=== PATIENT | female | born 1980 | race Caucasian/White ===

== ENCOUNTER 2017-06-02 16:44 | Emergency (ER) | payer OTHER ==
[2017-06-02 16:57] VITALS: BP 152/101
[2017-06-02] MEDS ORDERED: Sodium Chloride 0.9% 10 ML Syringe FLUSH PRN (17:23)
[2017-06-02] MEDS ORDERED: Aspirin 81 MG Tab.Chew PO ONE (17:23)
--- NOTE | 2017-06-02 18:56 | EDM.PDOC ---
ED HPI GENERAL MEDICAL PROBLEM - General Chief Complaint: Chest Pain Stated Complaint: CHEST PAIN Time Seen by Provider: 06/02/17 16:59 Source of Information: Reports: Patient History Limitations: Reports: No Limitations - History of Present Illness INITIAL COMMENTS - FREE TEXT/NARRATIVE: The patient presents with left sided chest pain. This started this morning. The pain is sharp. It is made worse by taking a deep breath. She has a mild cough but no fever or chills. She has no shortness of breath. She has no edema or pain in her legs. She has no history of DVT or PE. She went and worked out today and that made it worse and she was a little short of breath. She does smoke. She has history of HTN. She has no trouble with cholesterol. Onset: Gradual Duration: Hour(s): (This morning) Location: Reports: Chest Quality: Reports: Sharp Severity: Moderate Improves with: Reports: None Worsens with: Reports: None Context: Reports: Exercise Associated Symptoms: Reports: Chest Pain, Shortness of Breath. Denies: Fever/ Chills, Nausea/Vomiting Chest Pain Score (Numeric/FACES): 6 - Related Data Allergies Allergy/AdvReac Type Severity Reaction Status Date / Time amoxicillin [Amoxicillin] Allergy Hives Verified 06/02/17 16:51 Home Meds: Home Meds Blood Pressure Medication. 1 tab PO DAILY 11/15/14 [History] traMADol [Ultram] 50 mg PO Q6H PRN 06/02/17 [History] Past Medical History - Past Health History Medical/Surgical History: Denies Medical/Surgical History Cardiovascular History: Reports: Hypertension Social & Family History - Tobacco Use Smoking Status *Q: Current Every Day Smoker Years of Tobacco use: 20 Packs/Tins Daily: 0.3 - Alcohol Use Days Per Week of Alcohol Use: 7 Number of Drinks Per Day: 12 Total Drinks Per Week: 84 - Recreational Drug Use Recreational Drug Use: No ED ROS GENERAL - Review of Systems Review Of Systems: See Below Constitutional: Reports: No Symptoms HEENT: Reports: No Symptoms Respiratory: Reports: No Symptoms Cardiovascular: Reports: Chest Pain Endocrine: Reports: No Symptoms GI/Abdominal: Reports: No Symptoms : Reports: No Symptoms Musculoskeletal: Reports: No Symptoms Skin: Reports: No Symptoms Neurological: Reports: No Symptoms ED EXAM, GENERAL - Physical Exam Exam: See Below Exam Limited By: No Limitations General Appearance: Alert, No Apparent Distress Ears: Normal External Exam Nose: Normal Inspection Head: Atraumatic, Normocephalic Neck: Normal Inspection Respiratory/Chest: No Respiratory Distress, Lungs Clear, Normal Breath Sounds Cardiovascular: Regular Rate, Rhythm, No Edema, No Murmur GI/Abdominal: Soft, Non-Tender, No Organomegaly, No Mass Back Exam: Normal Inspection Extremities: Normal Inspection Neurological: Alert, Oriented, No Motor/Sensory Deficits EKG INTERPRETATION EKG Date: 06/02/17 Time: 16:53 Rhythm: NSR Rate (Beats/Min): 66 [place]: Normal P-Wave: Present QRS: Normal ST-T: Normal QT: Normal Course - Vital Signs Last Recorded V/S: Last Vital Signs Temp 97.7 F 06/02/17 16:52 Pulse 61 06/02/17 16:52 Resp 16 06/02/17 16:52 BP 152/101 H 06/02/17 16:52 Pulse Ox 99 06/02/17 16:52 - Orders/Labs/Meds Orders: Active Orders 24 hr Category Date Time Status Cardiac Monitoring [RC] . DIRECTED Care 06/02/17 17:23 Active EKG Documentation Completion [RC] STAT Care 06/02/17 16:50 Active Peripheral IV Care [RC] . DIRECTED Care 06/02/17 17:23 Inactive Chest 1V Frontal [CR] Stat Exams 06/02/17 17:23 Taken Labs: Laboratory Tests 06/02/17 06/02/17 06/02/17 Range/Units 17:40 17:40 17:40 WBC 6.21 (3.98-10.04) K/mm3 RBC 4.07 (3.98-5.22) M/mm3 Hgb 13.6 (11.2-15.7) gm/L Hct 38.7 (34.1-44.9) % MCV 95.1 H (79.4-94.8) fl MCH 33.4 H (25.6-32.2) pg MCHC 35.1 (32.2-35.5) g/dl RDW Std Deviation 40.9 (36.4-46.3) fL Plt Count 235 (182-369) K/mm3 MPV 9.5 (9.4-12.3) fl Neut % (Auto) 54.9 (34.0-71.1) % Lymph % (Auto) 30.0 (19.3-51.7) % Boundary % (Auto) 12.9 H (4.7-12.5) % Eos % (Auto) 1.6 (0.7-5.8) Baso % (Auto) 0.6 (0.1-1.2) % Neut # (Auto) 3.41 (1.56-6.13) K/mm3 Lymph # (Auto) 1.86 (1.18-3.74) K/mm3 Boundary # (Auto) 0.80 H (0.24-0.36) K/mm3 Eos # (Auto) 0.10 (0.04-0.36) K/mm3 Baso # (Auto) 0.04 (0.01-0.08) K/mm3 D-Dimer, Quantitative 0.28 (0.19-0.59) mg/L Sodium 140 (136-145) mEq/L Potassium 2.8 L (3.5-5.1) mEq/L Chloride 101 (98-107) mEq/L Carbon Dioxide 29 (21-32) mEq/L Anion Gap 12.8 (5-15) BUN 18 (7-18) mg/dL Creatinine 0.9 (0.55-1.02) mg/dL Est Cr Clr Drug Dosing TNP Estimated GFR (MDRD) > 60 (>60) mL/min BUN/Creatinine Ratio 20.0 H (14-18) Glucose 104 (74-106) mg/dL Calcium 10.1 (8.5-10.1) mg/dL Total Bilirubin 0.3 (0.2-1.0) mg/dL AST 35 (15-37) U/L ALT 39 (14-59) U/L Alkaline Phosphatase 37 L (46-116) U/L Troponin I < 0.017 (0.00-0.056) ng/mL Total Protein 7.3 (6.4-8.2) g/dl Albumin 4.1 (3.4-5.0) g/dl Globulin 3.2 gm/dL Albumin/Globulin Ratio 1.3 (1-2) Meds: Medications Discontinued Medications Generic Name Dose Route Start Last Admin Trade Name Freq PRN Reason Stop Dose Admin Aspirin 324 mg 06/02/17 17:23 06/02/17 17:37 Aspirin PO 06/02/17 17:24 324 mg ONETIME ONE Administration Sodium Chloride 10 ml 06/02/17 17:23 Saline Flush FLUSH ASDIRECTED PRN Keep Vein Open - Re-Assessments/Exams Free Text/Narrative Re-Assessment/Exam: 06/02/17 18:54 I ordered an aspirin, EKG, labs, and CXR. Her EKG shows a NSR with no acute changes. Her CBC and CMP look good. Her troponin is negative. Her D-dimer is negative. Her CXR shows scoliosis but nothing acute. 06/02/17 18:56 She has pleurisy. She said the aspirin made it feel better. Departure - Departure Time of Disposition: 19:00 Disposition: Home, Self-Care 01 Condition: Good Clinical Impression: Pleurisy Referrals: Ava Hyman DO [Primary Care Provider] - 1 Week Forms: ED Department Discharge Additional Instructions: Take aspirin, motrin or aleve for the pain. Limit fast running for a few days. Please return if you are worse. Follow up with your doctor in 1 week. - My Orders Last 24 Hours: My Active Orders 06/02/17 16:50 EKG Documentation Completion [RC] STAT 06/02/17 17:23 Cardiac Monitoring [RC] . DIRECTED Peripheral IV Care [RC] . DIRECTED Chest 1V Frontal [CR] Stat - Assessment/Plan Last 24 Hours: My Active Orders 06/02/17 16:50 EKG Documentation Completion [RC] STAT 06/02/17 17:23 Cardiac Monitoring [RC] . DIRECTED Peripheral IV Care [RC] . DIRECTED Chest 1V Frontal [CR] Stat
--- NOTE | 2017-06-03 07:00 | CR ---
Chest: Portable view of the chest was obtained. Comparison: Previous chest x-ray of 05/07/14. Heart size and mediastinum are normal. Scoliosis is present within the spine. Lungs are clear with no infiltrates. Impression: 1. Nothing acute is appreciated on portable chest x-ray. Diagnostic code #2
== END 2017-06-02 19:15 | disposition home or self-care (01) ==
LOC: JD.ED 16:44
DX: R09.1 Pleurisy (principal); I10 Essential (primary) hypertension; F17.210 Nicotine dependence, cigarettes, uncomplicated; Z88.1 Allergy status to other antibiotic agents
CPT/HCPCS: 36415; 71010; 80053; 84484; 85025; 85379; 93005; 99285; A9270; 99284

== ENCOUNTER 2018-07-18 10:42 | Emergency (ER) | payer OTHER ==
[2018-07-18] MEDS ORDERED: Oxymetazoline 0.05% Nasal Spray 15 ML Bottle NAS ONE (11:23)
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
[2018-07-18] MEDS ORDERED: Potassium Chloride 20 MEQ Tab.ER PO ONE (12:23)
[2018-07-18] MEDS ORDERED: Ketorolac 60 MG/2 ML SDV IM ONE (12:50)
[2018-07-18] MEDS ORDERED: Ketorolac 60 MG/2 ML SDV ONE (12:52)
[2018-07-18 13:02] VITALS: BP 134/92
--- NOTE | 2018-07-19 10:12 | CR ---
Chest: Two views of the chest were obtained. Comparison: Prior chest x-ray of 06/02/17. Heart size and mediastinum are normal. Lungs are clear. Scoliosis is noted within the spine. Impression: 1. Nothing acute is seen on two-view chest x-ray. Diagnostic code #2
== END 2018-07-18 13:10 | disposition home or self-care (01) ==
LOC: JD.ED 10:42
DX: J30.2 Other seasonal allergic rhinitis (principal); J06.9 Acute upper respiratory infection, unspecified; I10 Essential (primary) hypertension; Z88.1 Allergy status to other antibiotic agents; Z88.8 Allergy status to other drugs, medicaments and biological substances; F17.210 Nicotine dependence, cigarettes, uncomplicated
CPT/HCPCS: 36415; 71046; 80053; 80306; 81001; 81025; 82375; 84443; 85007; 85027; 86140; 93005; 96372; 99284; A9270; G0480; J1885

== ENCOUNTER 2020-04-16 14:48 | Emergency (ER) | payer OTHER ==
[2020-04-16 14:56] VITALS: BP 162/104; PULSE 77
[2020-04-16] MEDS ORDERED: Sodium Chloride 0.9% 10 ML Syringe FLUSH PRN (15:02)
--- NOTE | 2020-04-16 15:25 | EDM.PDOC ---
ED HPI GENERAL MEDICAL PROBLEM - General Chief Complaint: Chest Pain Stated Complaint: CHEST DISCOMFORT/BP ISSUES Time Seen by Provider: 04/16/20 15:00 Source of Information: Reports: Patient, RN Notes Reviewed History Limitations: Reports: No Limitations - History of Present Illness INITIAL COMMENTS - FREE TEXT/NARRATIVE: Patient is a 39-year-old female who presents to the ED for couple different issues. Patient notes that for the last 2 weeks, she is just feeling generally unwell. She is complaining of left-sided chest pressure, headache, and increased blood pressure readings at home. She was evaluated in the clinic by Maral Black and Zack Jones, and was found to have blood pressures in the 160s systolically and started on metoprolol 50 mg daily and losartan 50 mg daily along with chlorthalidone 25 mg every day. Patient states she was also sent home with a Holter monitor, and noted that she was found to have 478 PVCs, and she has been referred to cardiology and her appointment is May 04, she cannot remember the database operator but he is in [place] at the [facility]. Patient states she is having some mild dizziness associated with this, sinus pressure, but she denies any fever, cough/shortness of breath, or any fatigue. Blood pressures at home have been 164/98, 166/114, and she was found to be 162/104 at time of triage. Patient feels like her head is just in a vice, she did a little bit of nausea and vomiting this morning, but no blurred vision or double vision. Patient states she did have a thyroid nodule, that she received radiation pill for 4 months ago, and her last TSH was within normal limits. This was drawn April 03, 2020. Patient notes she is making multiple life changes, she is trying to stop drinking, so she is cutting back steadily, she only had 2 cigarettes yesterday, she did try to smoke some marijuana today, took 3 hits off of some medical marijuana to see if this would help and it did not. She denies any cocaine or methamphetamine use. Patient also notes she has increased anxiety in her life, she is a lot of things going on, regarding her daughter and otherwise that she was concerned it just could be anxiety as well. Patient has no medications at home to regulate his anxiety. Headache Pain Score (Numeric/FACES): 7 - Related Data Allergies Allergy/AdvReac Type Severity Reaction Status Date / Time amoxicillin [Amoxicillin] Allergy Hives Verified 04/16/20 14:56 valdecoxib [From Bextra] Allergy Rash Verified 04/16/20 14:56 Home Meds: Home Meds traMADol [Ultram] 50 mg PO Q6H PRN 06/02/17 [History] Chlorthalidone 25 mg PO DAILY 07/18/18 [History] Fish Oil/Mora-3 Fatty Acids [Fish Oil 1,000 MG] 1 each PO DAILY 04/16/20 [History] LORazepam [Ativan] 1 mg PO TID PRN #21 tab 04/16/20 [Rx] Losartan [Cozaar] 50 mg PO DAILY 04/16/20 [History] Metoprolol Succinate [Toprol XL 50mg] 50 mg PO DAILY 04/16/20 [History] Multivitamins [Tab-A-Keila] 1 each PO DAILY 04/16/20 [History] Past Medical History HEENT History: Reports: Impaired Vision Cardiovascular History: Reports: Hypertension TWISTER IN History: Reports: Psychiatric History: Reports: Addiction, Anxiety Endocrine/Metabolic History: Reports: Hyperthyroidism (had radiation pill for thyroid nodule 11/2019) Oncologic (Cancer) History: Reports: Cervix Dermatologic History: Reports: Eczema - Infectious Disease History Infectious Disease History: Reports: Chicken Pox - Past Surgical History Female Surgical History: Reports: Tubal Ligation, Other (See Below) Other Female Surgeries/Procedures: Conization of Cervix Social & Family History - Family History Family Medical History: Noncontributory - Tobacco Use Smoking Status *Q: Current Every Day Smoker Years of Tobacco use: 15 Packs/Tins Daily: 0.5 - Caffeine Use Caffeine Use: Reports: Coffee - Recreational Drug Use Recreational Drug Use: Yes Recreational Drug Type: Reports: Marijuana/Hashish ED ROS GENERAL - Review of Systems Review Of Systems: See Below Constitutional: Denies: Fever, Chills Respiratory: Denies: Shortness of Breath, Cough Cardiovascular: Reports: Chest Pain (left sided chest pressure), Blood Pressure Problem (elevated BPs at home), Lightheadedness GI/Abdominal: Reports: Nausea, Vomiting. Denies: Abdominal Pain, Constipation, Diarrhea Neurological: Reports: Dizziness, Headache (feels like her head is in a vise) Psychiatric: Reports: Anxiety (history of anxiety; has no medications to regulate anxiety) ED EXAM, GENERAL - Physical Exam Exam: See Below Exam Limited By: No Limitations General Appearance: Alert, WD/WN, No Apparent Distress, Anxious Eye Exam: Bilateral Eye: EOMI, Normal Inspection, PERRL Nose: Normal Inspection Throat/Mouth: Normal Inspection, Normal Lips, Normal Teeth, Normal Gums, Normal Oropharynx, Normal Voice, No Airway Compromise Head: Atraumatic, Normocephalic Neck: Normal Inspection Respiratory/Chest: No Respiratory Distress, Lungs Clear, Normal Breath Sounds, No Accessory Muscle Use, Chest Non-Tender Cardiovascular: Normal Peripheral Pulses, Regular Rate, Rhythm, No Murmur Peripheral Pulses: 3+: Radial (L), Radial (R), Dorsalis Pedis (L), Dorsalis Pedis (R) GI/Abdominal: Normal Bowel Sounds, Soft, Non-Tender, No Distention, No Mass Extremities: Normal Inspection, Normal Capillary Refill Neurological: Alert, Oriented, Normal Cognition, No Motor/Sensory Deficits Psychiatric: Normal Affect, Normal Mood, Anxious (pt tells me that she has a lot of things happening at home; that is increasing her anxiety, and she does get somewhat tearful at exam talking about them) Skin Exam: Warm, Dry, Intact, Normal Color, No Rash EKG INTERPRETATION EKG Date: 04/16/20 Time: 15:04 Rhythm: NSR Rate (Beats/Min): 62 [place]: Normal P-Wave: Present QRS: Normal ST-T: Normal QT: Normal Comparison: NA - No Prior EKG EKG Interpretation Comments: No obvious ischemia or acute ST changes noted, reviewed by myself and Dr. Garza. Course - Vital Signs Last Recorded V/S: Last Vital Signs Temp 97.6 F 04/16/20 14:53 Pulse 77 04/16/20 14:53 Resp 16 04/16/20 14:53 BP 162/104 H 04/16/20 14:53 Pulse Ox 98 04/16/20 14:53 - Orders/Labs/Meds Orders: Active Orders 24 hr Category Date Time Status EKG Documentation Completion [RC] STAT Care 04/16/20 15:02 Ordered Peripheral IV Care [RC] . DIRECTED Care 04/16/20 15:03 Ordered Sodium Chloride 0.9% [Saline Flush] Med 04/16/20 15:02 Ordered 10 ml FLUSH ASDIRECTED PRN Peripheral IV Insertion Adult [OM.PC] Stat Oth 04/16/20 15:02 Ordered Medication Orders Sodium Chloride (Saline Flush) 10 ml FLUSH ASDIRECTED PRN PRN Reason: Keep Vein Open Last Admin: 04/16/20 15:47 Dose: 10 ml Documented by: RENUKA Labs: Laboratory Tests 04/16/20 04/16/20 04/16/20 Range/Units 15:20 15:20 15:20 WBC 6.68 (3.98-10.04) K/mm3 RBC 4.31 (3.98-5.22) M/mm3 Hgb 14.2 (11.2-15.7) gm/dl Hct 42.1 (34.1-44.9) % MCV 97.7 H D (79.4-94.8) fl MCH 32.9 H (25.6-32.2) pg MCHC 33.7 (32.2-35.5) g/dl RDW Std Deviation 42.4 (36.4-46.3) fL Plt Count 256 (182-369) K/mm3 MPV 9.2 L (9.4-12.3) fl Neutrophils % (Manual) 67 H (40-60) % Band Neutrophils % 0 (0-10) % Lymphocytes % (Manual) 23 (20-40) % Atypical Lymphs % 0 % Monocytes % (Manual) 10 (2-10) % Eosinophils % (Manual) 0 L (0.7-5.8) % Basophils % (Manual) 0 L (0.1-1.2) Toxic Granulation Few Platelet Estimate Adequate Plt Morphology Comment Normal RBC Morph Comment Normal PT 10.3 (9.7-12.0) SECONDS INR 0.94 APTT 28 (22-31) SECONDS Sodium 138 (136-145) mEq/L Potassium 4.0 (3.5-5.1) mEq/L Chloride 104 (98-107) mEq/L Carbon Dioxide 23 (21-32) mEq/L Anion Gap 15.0 (5-15) BUN 9 (7-18) mg/dL Creatinine 0.8 (0.55-1.02) mg/dL Est Cr Clr Drug Dosing 91.81 mL/min Estimated GFR (MDRD) > 60 (>60) mL/min BUN/Creatinine Ratio 11.3 L (14-18) Glucose 117 H (74-106) mg/dL Calcium 9.1 (8.5-10.1) mg/dL Magnesium 1.6 L (1.8-2.4) mg/dl Total Bilirubin 0.5 (0.2-1.0) mg/dL AST 14 L (15-37) U/L ALT 6 L (14-59) U/L Alkaline Phosphatase 45 L (46-116) U/L Troponin I < 0.017 (0.00-0.056) ng/mL Total Protein 7.3 (6.4-8.2) g/dl Albumin 4.0 (3.4-5.0) g/dl Globulin 3.3 gm/dL Albumin/Globulin Ratio 1.2 (1-2) TSH 3rd Generation 1.960 (0.358-3.74) uIU/mL Meds: Medications Generic Name Dose Route Start Last Admin Trade Name Freq PRN Reason Stop Dose Admin Sodium Chloride 10 ml 04/16/20 15:02 04/16/20 15:47 Saline Flush FLUSH 10 ml ASDIRECTED PRN Administration Keep Vein Open Discontinued Medications Generic Name Dose Route Start Last Admin Trade Name Freq PRN Reason Stop Dose Admin Diphenhydramine HCl 25 mg 04/16/20 15:31 04/16/20 15:53 Benadryl IVPUSH 04/16/20 15:32 25 mg ONETIME ONE Administration Sodium Chloride 1,000 mls @ 999 mls/hr 04/16/20 15:31 04/16/20 15:46 Normal Saline IV 04/16/20 16:31 999 mls/hr ONETIME ONE Administration Ketorolac Tromethamine 30 mg 04/16/20 15:31 04/16/20 15:47 Toradol IVPUSH 04/16/20 15:32 30 mg ONETIME ONE Administration Metoclopramide HCl 10 mg 04/16/20 15:31 04/16/20 15:49 Reglan IVPUSH 04/16/20 15:32 10 mg ONETIME ONE Administration - Re-Assessments/Exams Free Text/Narrative Re-Assessment/Exam: 04/16/20 15:30 Patient presents to the ED for the evaluation of her left-sided chest pressure, headache, and suspected anxiety. She has been started on blood pressure medication for the blood pressure toilet will take some time for that to get under control nonetheless we will get EKG the basic lab work to rule out any cardiac etiology of the left-sided chest pain. She will get a combination of Toradol, Benadryl, and Reglan for her headache along with some IV fluids. If her work-up is unremarkable at today's visit, we will send her home with a prescription for Ativan for increased anxiety at home. 04/16/20 16:19 Patient's laboratory evaluation has returned, CBC is unremarkable, metabolic panel is essentially unremarkable. No worrisome abnormalities identified. Magnesium slightly low at 1.6, she will be directed to supplement with dietary changes over the next few days. Patient will be reassessed at bedside to see how she is feeling after medications have been given for her headache. 04/16/20 16:46 Patient is feeling better after the medications and fluids. We will provided with a prescription for Ativan should be discharged home after her fluids are done. Of note the patient's blood pressure readings are much better, in the 120s systolically while the patient is resting. Departure - Departure Time of Disposition: 16:46 Disposition: Home, Self-Care 01 Condition: Good Clinical Impression: Anxiety as acute reaction to exceptional stress, Elevated blood pressure reading in office with diagnosis of hypertension, Hypomagnesemia Prescriptions: LORazepam [Ativan] 1 mg PO TID PRN #21 tab PRN Reason: Anxiety Instructions: Managing Your Hypertension, Hypomagnesemia Referrals: Maral Black MD [Primary Care Provider] - Forms: ED Department Discharge Additional Instructions: You were today for your chest pressure/anxiety/blood pressure concerns. Work-up in the ER today included EKG, chest x-ray, lab work, IV meds and fluids. Laboratory evaluation demonstrated only a mildly low magnesium level, you can supplement this with dietary changes, please increase your intake of dark green leafy vegetables, and other foods that are high in magnesium. You are not suffering from a heart attack at today's visit, symptoms are most likely due to anxiety due to exceptional stress at home and also regarding your health. You have been given a prescription for Ativan, please take 1 tab 3 times a day as needed for further anxiety relief. Medication has been sent to clinic pharmacy you will need to go there tomorrow to pick this up and take as prescribed. Recommend you keep an eye on your blood pressures, keep a blood pressure journal and discuss them with your primary care provider, as blood pressure medications can take a little time to start regulating your blood pressure the way they are intended to. Please return to the ER at any time if your symptoms should change or worsen. Sepsis Event Note (ED) - Evaluation Sepsis Screening Result: No Definite Risk - Focused Exam Vital Signs: Vital Signs Temp Pulse Resp BP Pulse Ox 04/16/20 14:53 97.6 F 77 16 162/104 H 98 - My Orders Last 24 Hours: My Active Orders 04/16/20 15:02 EKG Documentation Completion [RC] STAT Sodium Chloride 0.9% [Saline Flush] 10 ml FLUSH ASDIRECTED PRN Peripheral IV Insertion Adult [OM.PC] Stat 04/16/20 15:03 Peripheral IV Care [RC] . DIRECTED - Assessment/Plan Last 24 Hours: My Active Orders 04/16/20 15:02 EKG Documentation Completion [RC] STAT Sodium Chloride 0.9% [Saline Flush] 10 ml FLUSH ASDIRECTED PRN Peripheral IV Insertion Adult [OM.PC] Stat 04/16/20 15:03 Peripheral IV Care [RC] . DIRECTED
[2020-04-16] MEDS ORDERED: Sodium Chloride 0.9% 1,000 ML IV ONE (15:31)
[2020-04-16] MEDS ORDERED: diphenhydrAMINE 50 MG/ML SDV IVPUSH ONE (15:31)
[2020-04-16] MEDS ORDERED: Metoclopramide 10 MG/2 ML SDV IVPUSH ONE (15:31)
[2020-04-16] MEDS ORDERED: Ketorolac 30 MG/ML SDV IVPUSH ONE (15:31)
--- NOTE | 2020-04-16 16:06 | CR ---
Chest: 2 views of the chest were obtained. Comparison: Prior chest x-ray of 07/18/18. Heart size and mediastinum are normal. Lungs are clear with no acute parenchymal change. Scoliosis is noted within the spine. Impression: 1. Nothing acute is appreciated on 2 chest x-ray. Diagnostic code #2 Study was dictated in MDT
[2020-04-16] MEDS ORDERED: LORazepam 1 MG Tab PO ONE (16:51)
== END 2020-04-16 17:10 | disposition home or self-care (01) ==
LOC: JD.ED 14:48
DX: F41.8 Other specified anxiety disorders (principal); F43.0 Acute stress reaction; I10 Essential (primary) hypertension; E83.42 Hypomagnesemia; F17.210 Nicotine dependence, cigarettes, uncomplicated; Z88.1 Allergy status to other antibiotic agents; Z79.899 Other long term (current) drug therapy
CPT/HCPCS: 36415; 71046; 80053; 83735; 84443; 84484; 85007; 85027; 85610; 85730; 93005; 96361; 96374; 96375; 99285; A9270; J1200; J1885; J2765; J7030; 93010; 99284

== ENCOUNTER 2020-09-27 19:59 | Emergency (ER) | payer OTHER ==
[2020-09-27 20:33] VITALS: PULSE 84
--- NOTE | 2020-09-27 21:53 | EDM.PDOC ---
ED HPI GENERAL MEDICAL PROBLEM - General Chief Complaint: Cardiovascular Problem Stated Complaint: HIGH BP/HEADACHES Time Seen by Provider: 09/27/20 21:07 Source of Information: Reports: Patient, RN Notes Reviewed History Limitations: Reports: No Limitations - History of Present Illness INITIAL COMMENTS - FREE TEXT/NARRATIVE: Patient is a 40-year-old female presenting to the emergency department with complaints of chronic headache over the last few days as well as elevated blood pressures and intermittent chest pains. Patient has a history of thyroid nodules which were removed and required radiation. She has had normal TSH and free T4 until her last visit 2 days ago with her primary care provider. She was found to have elevated TSH at that time. She was also diagnosed with a sinus infection at that time for which she is currently taking doxycycline. In addition, patient is detoxing herself from chronic alcohol use. States she used to drink 6 drinks per day and that she has been trying to wean herself off since . She currently has been having 1 drink per day. She describes having frequent headaches as well as occasional dizziness. Blood pressures have been chronically elevated at home as well as in the clinic. Blood pressure reading in the clinic today is always 164/106. She also has a history of palpitations. She did have a 48-hour Holter monitor completed and saw administrator pesticide, Dr. Arias. Holter monitor report revealed PVCs and PACs but no runs of SVT, A. fib, or ventricular tachycardia. Dr. Arias started her on carvedilol for her palpitations. She recently stopped taking this medication as she thought this could be causing her headaches. Today she did have some increase palpitations, therefore she took one of her carvedilol 12.5 mg around 2:00 this afternoon. Since she took the carvedilol, she only took half of her losartan at 7 PM this evening. Initial blood pressure at triage was 198/126, however after rest she came down to 164/110. She complains of some mild chest pressure that comes and goes and occasional sharp stabbing pains in her chest. She does have a prescription for Ativan that was for anxiety, however she has not been using this during her alcohol withdrawal as she did not know if it was safe with her other medications. Patient states she is scheduled to have an MRI to evaluate her pituitary gland for possible pituitary adenoma. Headache Pain Score (Numeric/FACES): 7 - Related Data Allergies Allergy/AdvReac Type Severity Reaction Status Date / Time amoxicillin [Amoxicillin] Allergy Hives Verified 09/27/20 20:34 valdecoxib [From Bextra] Allergy Rash Verified 09/27/20 20:34 Home Meds: Home Meds Fish Oil/[place]-3 Fatty Acids [Fish Oil 1,000 MG] 1 each PO DAILY 04/16/20 [History] LORazepam [Ativan] 1 mg PO TID PRN #21 tab 04/16/20 [Rx] Losartan [Cozaar] 50 mg PO DAILY 04/16/20 [History] Multivitamins [Tab-A-Keila] 1 each PO DAILY 04/16/20 [History] Doxycycline Monohydrate 100 mg PO BID 09/27/20 [History] carvediloL [Carvedilol] 12.5 mg PO DAILY 09/27/20 [History] Past Medical History HEENT History: Reports: Impaired Vision Cardiovascular History: Reports: Hypertension Respiratory History: Reports: None Gastrointestinal History: Reports: None [employer] 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: Musculoskeletal History: Reports: None Neurological History: Reports: None Psychiatric History: Reports: Addiction, Anxiety Endocrine/Metabolic History: Reports: Hyperthyroidism Hematologic History: Reports: None Immunologic History: Reports: None Oncologic (Cancer) History: Reports: Cervix Dermatologic History: Reports: Eczema - Infectious Disease History Infectious Disease History: Reports: Chicken Pox - Past Surgical History Female Surgical History: Reports: Tubal Ligation, Other (See Below) Other Female Surgeries/Procedures: Conization of Cervix Social & Family History - Family History Family Medical History: No Pertinent Family History - Tobacco Use Tobacco Use Status *Q: Current Every Day Tobacco User Years of Tobacco use: 20 Packs/Tins Daily: 0.2 - Caffeine Use Caffeine Use: Reports: None - Alcohol Use Days Per Week of Alcohol Use: 7 Number of Drinks Per Day: 6 Total Drinks Per Week: 42 Date of Last Drink: 09/27/20 Time of Last Drink: 18:00 - Recreational Drug Use Recreational Drug Use: No ED ROS GENERAL - Review of Systems Review Of Systems: See Below Constitutional: Reports: No Symptoms. Denies: Fever, Chills, Weakness HEENT: Reports: No Symptoms Respiratory: Reports: No Symptoms Cardiovascular: Reports: Blood Pressure Problem. Denies: Chest Pain, Syncope Endocrine: Reports: No Symptoms GI/Abdominal: Reports: No Symptoms : Reports: No Symptoms Musculoskeletal: Reports: No Symptoms Skin: Reports: No Symptoms Neurological: Reports: Dizziness, Headache. Denies: Trouble Speaking, Difficulty Walking, Change in Speech Psychiatric: Reports: Anxiety Hematologic/Lymphatic: Reports: No Symptoms Immunologic: Reports: No Symptoms ED EXAM, GENERAL - Physical Exam Exam: See Below Exam Limited By: No Limitations General Appearance: Alert, WD/WN, No Apparent Distress Eye Exam: Bilateral Eye: PERRL Head: Atraumatic, Normocephalic Respiratory/Chest: No Respiratory Distress, Lungs Clear, Normal Breath Sounds, No Accessory Muscle Use, Chest Non-Tender Cardiovascular: Normal Peripheral Pulses, Regular Rate, Rhythm, No Edema, No Gallop, No JVD, No Murmur, No Rub GI/Abdominal: Normal Bowel Sounds, Soft, Non-Tender, No Organomegaly, No Distention, No Abnormal Bruit, No Mass Neurological: Alert, Oriented, CN II-XII Intact, Normal Cognition, Normal Gait, Normal Reflexes, No Motor/Sensory Deficits Psychiatric: Normal Affect, Normal Mood Skin Exam: Warm, Dry, Intact, Normal Color, No Rash #1 Interpretation EKG Date: 09/27/20 Time: 21:44 Rhythm: NSR Rate (Beats/Min): 64 [place]: Normal P-Wave: Present QRS: Normal ST-T: Normal QT: Normal Course - Vital Signs Last Recorded V/S: Last Vital Signs Temp 98.3 F 09/27/20 20:29 Pulse 84 09/27/20 20:29 Resp 16 09/27/20 20:29 BP 155/109 H 09/27/20 23:11 Pulse Ox 99 09/27/20 20:29 - Orders/Labs/Meds Labs: Laboratory Tests 09/27/20 09/27/20 Range/Units 20:40 20:40 WBC 8.14 (3.98-10.04) K/mm3 RBC 4.22 (3.98-5.22) M/mm3 Hgb 14.0 (11.2-15.7) gm/dl Hct 41.9 (34.1-44.9) % MCV 99.3 H (79.4-94.8) fl MCH 33.2 H (25.6-32.2) pg MCHC 33.4 (32.2-35.5) g/dl RDW Std Deviation 43.4 (36.4-46.3) fL Plt Count 264 (182-369) K/mm3 MPV 9.7 (9.4-12.3) fl Neut % (Auto) 54.4 (34.0-71.1) % Lymph % (Auto) 31.8 (19.3-51.7) % [place] % (Auto) 11.3 (4.7-12.5) % Eos % (Auto) 2.2 (0.7-5.8) Baso % (Auto) 0.2 (0.1-1.2) % Neut # (Auto) 4.42 (1.56-6.13) K/mm3 Lymph # (Auto) 2.59 (1.18-3.74) K/mm3 [place] # (Auto) 0.92 H (0.24-0.36) K/mm3 Eos # (Auto) 0.18 (0.04-0.36) K/mm3 Baso # (Auto) 0.02 (0.01-0.08) K/mm3 Sodium 135 L (136-145) mEq/L Potassium 3.6 (3.5-5.1) mEq/L Chloride 100 (98-107) mEq/L Carbon Dioxide 22 (21-32) mEq/L Anion Gap 16.6 H (5-15) BUN 8 (7-18) mg/dL Creatinine 0.8 (0.55-1.02) mg/dL Est Cr Clr Drug Dosing 90.90 mL/min Estimated GFR (MDRD) > 60 (>60) mL/min BUN/Creatinine Ratio 10.0 L (14-18) Glucose 102 (74-106) mg/dL Calcium 9.1 (8.5-10.1) mg/dL Total Bilirubin 0.3 (0.2-1.0) mg/dL AST 15 (15-37) U/L ALT 20 (14-59) U/L Alkaline Phosphatase 39 L (46-116) U/L Troponin I < 0.017 (0.00-0.056) ng/mL C-Reactive Protein 0.2 (<1.0) mg/dL Total Protein 7.6 (6.4-8.2) g/dl Albumin 4.1 (3.4-5.0) g/dl Globulin 3.5 gm/dL Albumin/Globulin Ratio 1.2 (1-2) Meds: Medications Discontinued Medications Generic Name Dose Route Start Last Admin Trade Name Mary PRN Reason Stop Dose Admin Influenza Virus Vaccine 1 each 09/27/20 20:39 Pharmacy To Dose - Influenza Vaccine IM 09/27/20 20:40 ONETIME ONE Influenza Virus Vaccine 60 mcg 09/27/20 23:00 09/27/20 23:02 Fluzone Quad Syringe IM 09/27/20 23:01 60 mcg .ONCE ONE Administration - Re-Assessments/Exams Free Text/Narrative Re-Assessment/Exam: Patient is a 40-year-old female presenting to the emergency department with complaints of headache, some dizziness, and increased blood pressure. She is contreras d chronic issues with elevated blood pressure. She is had increasing headaches over the last few days. She saw her PCP 2 days ago and was started on doxycycline for sinusitis. She is also detoxing from alcohol use. She describes throbbing headaches as well as intermittent chest pain. She has some very mild chest discomfort at this time. She does have Ativan at home which she is used in the past for anxiety, however she has not been taking it recently as she was not sure if it was safe to take with her other medications. She thought that the Coreg was causing her headaches, therefore she has not been using that, however she did take 1 today due to having palpitations. Have ordered a cardiac work-up including CBC, CMP, troponin, chest x-ray, EKG. We also do a CT scan of her head to rule out any intracranial abnormalities. While elevated, her blood pressures are not dangerously high, therefore we will hold off on intervention. Plan will be to discuss medications with the patient once results are available. 09/27/20 22:33 Hematology was grossly unremarkable. Troponin was negative. CT scan of the head shows no acute intracranial abnormality but does show possible evidence for sinusitis chest x-ray shows scoliosis but no other abnormalities. EKG was normal sinus rhythm. Discussed results with patient. I would recommend that she takes her full losartan 50 mg daily. Since she continues to have headaches despite not taking the carvedilol, it is unlikely that this is what was causing her headaches. Recommend that she resumes taking this twice daily morning and evening. I did also discussed that she may use her anxiety medication especially off and on over the next week considering she is detoxing from alcohol. This is likely contributing to her headaches and intermittent chest pain. She is going states that her primary care provider will likely be in contact with her tomorrow with regards to scheduling her MRI. Recommend that she update her on tonight's occurrences. Discussed return precautions. Discharge instructions as documented. Departure - Departure Time of Disposition: 22:44 Disposition: Home, Self-Care 01 Condition: Good Clinical Impression: Alcohol withdrawal syndrome, Elevated blood pressure reading in office with diagnosis of hypertension Headache Qualifiers: Headache type: unspecified Headache chronicity pattern: acute headache Intractability: not intractable Qualified Code(s): R51.9 - Headache, unspecified Sinusitis Qualifiers: Sinusitis location: maxillary Chronicity: acute Recurrence: not specified as recurrent Qualified Code(s): J01.00 - Acute maxillary sinusitis, unspecified Instructions: Alcohol Use Disorder, General Headache Without Cause Referrals: Maral Black NP [Primary Care Provider] - Forms: ED Department Discharge Additional Instructions: You were seen in the emergency department today for chronic headache over the last few days, elevated blood pressures, and intermittent chest pain. Work-up included blood work, EKG of your heart, chest x-ray, and a CT scan of your head. Your work-up was found to be overall normal, however the CT scan of your head does show evidence of sinus infection. As we discussed, the combination of your alcohol detox along with your sinusitis and elevated blood pressure are likely all contributing to your headaches. Recommend that you continue taking the doxycycline that was prescribed for your sinusitis. Take your full losartan 50 mg daily, preferably in the morning. I would also recommend that you continue to take your carvedilol 12.5 mg twice daily. You may take your carvedilol and losartan at the same time in the morning and then take the second dose of carvedilol in the evening. You may use your Ativan that was previously prescribed for anxiety as needed, especially over the course of the next week as you continue to detox from alcohol. Do not consume alcohol while using this medication. Recommend follow-up with your primary care provider at her next available visit. Return to ER for any new or worsening symptoms of concern. Sepsis Event Note (ED) - Evaluation Sepsis Screening Result: No Definite Risk
[2020-09-27] MEDS ORDERED: FLU VACC QS2020-21(6MOS UP)/PF 60 MCG/0.5 ML SYRINGE IM ONE (23:00)
[2020-09-27 23:12] VITALS: BP 155/109
--- NOTE | 2020-09-28 12:46 | CR ---
Chest: 2 views of the chest were obtained. Comparison: Prior chest x-ray of 04/16/20. Heart size and mediastinum are normal. Lungs are clear with no acute parenchymal change. Stable scoliosis is seen within the spine. Impression: 1. Findings as noted above. 2. Nothing acute is seen. Diagnostic code #2
--- NOTE | 2020-09-28 12:50 | CT ---
Head CT Technique: Multiple axial sections through the brain were obtained. Intravenous contrast was not utilized. Comparison: Prior head CT study of 01/27/12. Findings: Intracranial: Ventricles along with basal cisterns and sulci over the convexities appear within normal limits for the patient's age. No abnormal parenchymal densities are seen. No evidence of intracranial hemorrhage. No midline shift or mass-effect is seen. Osseous structures: There is areas of mucosal thickening scattered within the ethmoid sinus and sphenoid sinus. No air-fluid levels are seen. Mastoid sinuses are clear. No acute calvarial finding is appreciated. Impression: 1. Sinus disease most likely chronic. 2. No acute intracranial abnormality is appreciated. Diagnostic code #2 Agree with preliminary report by Sherri dated 09/27/20, 11:31 PM Central daylight time
== END 2020-09-27 23:14 | disposition home or self-care (01) ==
LOC: JD.ED 19:59
DX: J01.00 Acute maxillary sinusitis, unspecified (principal); I10 Essential (primary) hypertension; F10.239 Alcohol dependence with withdrawal, unspecified; F41.9 Anxiety disorder, unspecified; F17.210 Nicotine dependence, cigarettes, uncomplicated; Z23 Encounter for immunization; Z88.1 Allergy status to other antibiotic agents; Z88.8 Allergy status to other drugs, medicaments and biological substances; Z98.51 Tubal ligation status; Z79.899 Other long term (current) drug therapy
CPT/HCPCS: 36415; 70450; 70450-26; 71046; 71046-26; 80053; 84484; 85025; 86140; 90686; 93005; 93010; 99284; 99285-25; G0008

== ENCOUNTER 2022-06-21 09:17 | Emergency (ER) | payer BC, OTHER ==
[2022-06-21] MEDS ORDERED: Ketorolac 30 MG/ML SDV IVPUSH ONE (10:02)
[2022-06-21] MEDS ORDERED: Sodium Chloride 0.9% 1,000 ML IV ONE (10:02)
[2022-06-21] MEDS ORDERED: predniSONE 20 MG Tab PO ONE (10:02)
[2022-06-21 16:06] VITALS: BP 153/105; PULSE 79
== END 2022-06-21 16:02 | disposition home or self-care (01) ==
LOC: JD.ED 09:17
DX: B34.9 Viral infection, unspecified (principal); I10 Essential (primary) hypertension; F17.210 Nicotine dependence, cigarettes, uncomplicated; Z88.1 Allergy status to other antibiotic agents; Z88.8 Allergy status to other drugs, medicaments and biological substances; Z79.899 Other long term (current) drug therapy; Z86.16 Personal history of COVID-19; Z20.822 Contact with and (suspected) exposure to COVID-19
CPT/HCPCS: 36415; 85007; 85027; 85652; 86140; 87635; 96361; 96374; 99283; J1885; J7030; J7512; U0002

== ENCOUNTER 2023-01-31 13:52 | Emergency (ER) | payer BC ==
[2023-01-31] MEDS ORDERED: Sodium Chloride 0.9% 1,000 ML IV ONE (14:13)
[2023-01-31] MEDS ORDERED: Ondansetron 4 MG/2 ML SDV IVPUSH ONE (14:13)
[2023-01-31] MEDS ORDERED: Sodium Chloride 0.9% 10 ML Syringe FLUSH PRN (14:13)
[2023-01-31 16:50] VITALS: BP 114/87; PULSE 84
== END 2023-01-31 16:45 | disposition home or self-care (01) ==
LOC: JD.ED 13:52
DX: R11.2 Nausea with vomiting, unspecified (principal); R79.9 Abnormal finding of blood chemistry, unspecified; I10 Essential (primary) hypertension; E03.9 Hypothyroidism, unspecified; Z88.0 Allergy status to penicillin; Z88.8 Allergy status to other drugs, medicaments and biological substances; Z86.16 Personal history of COVID-19; Z79.899 Other long term (current) drug therapy
CPT/HCPCS: 36415; 74176; 80053; 81001; 85025; 87086; 96361; 96374; 99284; J2405; J7030

== ENCOUNTER 2023-03-21 09:01 | Emergency (ER) | payer BC ==
[2023-03-21] MEDS ORDERED: Magnesium Sulfate/Water 4 GM in Premix Bag 1 BAG IV ONE (10:08)
[2023-03-21] MEDS ORDERED: Sodium Chloride 0.9% 10 ML Syringe FLUSH PRN (10:08)
[2023-03-21 10:18] LABS: BASOPHILS ABSOLUTE AUTO 0.04 K/mm3 (0.01-0.08); BASOPHILS PERCENT AUTO 0.7 % (0.1-1.2); EOSINOPHILS ABSOLUTE AUTO 0.09 K/mm3 (0.04-0.36); EOSINOPHILS PERCENT AUTO 1.7 (0.7-5.8); HEMOGLOBIN 9.4 gm/dl (11.2-15.7); IMMATURE GRAN ABSOLUTE AUTO 0.01 K/mm3 (0.00-0.10); IMMATURE GRAN PERCENT AUTO 0.2 % (<=1.0); LYMPHOCYTES ABSOLUTE AUTO 1.51 K/mm3 (1.18-3.74); MEAN CORPUSCULAR HEMOGLOBIN 34.2 pg (25.6-32.2); MEAN CORPUSCULAR HGB CONC 32.4 g/dl (32.2-35.5); MEAN CORPUSCULAR VOLUME 105.5 fl (79.4-94.8); MEAN PLATELET VOLUME 9.8 fl (9.4-12.3); MONOCYTES PERCENT AUTO 7.4 % (4.7-12.5); NEUTROPHILS ABSOLUTE AUTO 3.34 K/mm3 (1.56-6.13); PLATELET COUNT,PLT 250 K/mm3 (182-369); RED BLOOD CELL COUNT 2.75 M/mm3 (3.98-5.22); WHITE BLOOD CELL COUNT,WBC 5.39 K/mm3 (3.98-10.04)
[2023-03-21 10:29] LABS: A/G RATIO 0.8 (1-2); ALBUMIN 2.8 g/dl (3.4-5.0); ANION GAP 15.9 (5-15); BILIRUBIN TOTAL 1.1 mg/dL (0.2-1.0); BUN/CREATININE RATIO 13.1 (14-18); CALCIUM 8.1 mg/dL (8.5-10.1); CREATININE 1.3 mg/dL (0.55-1.02); EST CRCL DRUG DOSING (CG) 54.82 mL/min; MAGNESIUM 1.1 mg/dL (1.8-2.4); POTASSIUM,K 3.9 mEq/L (3.5-5.1); PROTEIN TOTAL,TP 6.3 g/dl (6.4-8.2)
[2023-03-21] MEDS ORDERED: Ondansetron 4 MG/2 ML SDV IVPUSH ONE (13:41)
[2023-03-21 15:50] VITALS: BP 123/93; PULSE 84
== END 2023-03-21 14:35 | disposition home or self-care (01) ==
LOC: JD.ED 09:01
DX: E83.42 Hypomagnesemia (principal); D64.89 Other specified anemias; R11.2 Nausea with vomiting, unspecified; I10 Essential (primary) hypertension; E05.90 Thyrotoxicosis, unspecified without thyrotoxic crisis or storm; Z86.16 Personal history of COVID-19; Z88.0 Allergy status to penicillin; Z88.8 Allergy status to other drugs, medicaments and biological substances; Z79.899 Other long term (current) drug therapy
CPT/HCPCS: 36415; 80053; 83735; 85025; 93971; 96365; 96366; 96375; 99284; J2405; J3475; J3490

== ENCOUNTER 2023-12-01 10:48 | Emergency (ER) | payer BC | END 2023-12-01 11:03 | disposition left against medical advice (07) | LOC: JD.ED 10:48 | DX: Z53.21 Procedure and treatment not carried out due to patient leaving prior to being seen by health care provider (principal) ==

== ENCOUNTER 2023-12-01 13:56 | Emergency (ER) | payer BC ==
[2023-12-01 16:31] LABS: BASOPHILS PERCENT AUTO 0.4 % (0.0-1.0); EOSINOPHILS ABSOLUTE AUTO 0.1 K/mm3 (0.0-0.4); EOSINOPHILS PERCENT AUTO 1.3 % (0.0-6.0); HEMATOCRIT 36.4 % (37.0-47.0); HEMOGLOBIN 12.5 gm/dl (12.0-16.0); IMMATURE GRAN ABSOLUTE AUTO 0.01 K/mm3 (0.00-0.05); IMMATURE GRAN PERCENT AUTO 0.1 % (0.0-0.4); LYMPHOCYTES ABSOLUTE AUTO 2.2 K/mm3 (1.0-4.8); LYMPHOCYTES PERCENT AUTO 31.8 % (24.0-44.0); MEAN CORPUSCULAR HEMOGLOBIN 33.3 pg (28.0-32.0); MEAN CORPUSCULAR HGB CONC 34.3 g/dl (32.0-36.0); MEAN CORPUSCULAR VOLUME 97.1 fl (83.0-99.0); MEAN PLATELET VOLUME 9.2 fl (9.4-12.3); MONOCYTES ABSOLUTE AUTO 0.7 K/mm3 (0.0-0.8); MONOCYTES PERCENT AUTO 9.9 % (0.0-8.0); NEUTROPHILS ABSOLUTE AUTO 3.8 K/mm3 (1.8-7.7); NEUTROPHILS PERCENT AUTO 56.5 % (41.0-71.0); PLATELET COUNT,PLT 212 K/mm3 (150-400); RED BLOOD CELL COUNT 3.75 M/mm3 (4.10-5.30); WHITE BLOOD CELL COUNT,WBC 6.76 K/mm3 (3.9-11.3)
[2023-12-01 16:44] LABS: D-DIMER QUANTITATIVE 0.32 mg/L (0.19-0.50); INR 0.98; PROTHROMBIN TIME 10.5 SECONDS (9.7-12.0)
[2023-12-01 16:54] LABS: ANION GAP 15.8 (5-15); BUN/CREATININE RATIO 8.9 (14-18); CREATININE 0.9 mg/dL (0.55-1.02); POTASSIUM,K 3.8 mEq/L (3.5-5.1)
[2023-12-01 16:55] LABS: ALBUMIN 3.4 g/dl (3.4-5.0); BILIRUBIN TOTAL 0.6 mg/dL (0.2-1.0); CALCIUM 8.5 mg/dL (8.5-10.1); EST CRCL DRUG DOSING (CG) 78.38 mL/min; MAGNESIUM 1.4 mg/dL (1.8-2.4); PROTEIN TOTAL,TP 6.8 g/dl (6.4-8.2)
[2023-12-01] MEDS: Lactated Ringers 1,000 ML IV SCH (16:59)
[2023-12-01] MEDS: Sodium Chloride 0.9% 10 ML Syringe FLUSH PRN (16:59)
[2023-12-01] MEDS: Aspirin 81 MG Tab.Chew PO ONE (16:59)
[2023-12-01 17:37] LABS: CORONAVIRUS COVID-19 NAA NEGATIVE (NEGATIVE); INFLUENZA A NAA NEGATIVE (NEGATIVE); RESPIRATORY SYNCYTIAL VIR NAA NEGATIVE (NEGATIVE)
[2023-12-01 17:55] VITALS: BP 187/106; PULSE 58
== END 2023-12-01 18:00 | disposition home or self-care (01) ==
LOC: JD.ED 13:56
DX: R07.89 Other chest pain (principal); E83.42 Hypomagnesemia; I10 Essential (primary) hypertension; Z86.16 Personal history of COVID-19; Z79.899 Other long term (current) drug therapy; Z88.0 Allergy status to penicillin; Z88.8 Allergy status to other drugs, medicaments and biological substances
CPT/HCPCS: 0241U; 36415; 71045; 80053; 83735; 84484; 85025; 85379; 85610; 93005; 96360; 99285; A9270; J3490; J7120; 93010; 99283

== ENCOUNTER 2024-01-06 22:47 | Emergency (ER) | payer BC ==
[2024-01-06 23:34] LABS: APPEARANCE,URINE CLEAR (Clear); BILIRUBIN,URINE NEGATIVE (Negative); COLOR,URINE LIGHT YELLOW (Yellow); GLUCOSE,URINE NEGATIVE (Negative); KETONES,URINE NEGATIVE (Negative); LEUKOCYTE ESTERASE,URINE NEGATIVE (Negative); NITRITE,URINE NEGATIVE (Negative); OCCULT BLOOD,URINE 1+ (Negative); PROTEIN,URINE NEGATIVE (Negative); UROBILINOGEN,URINE 0.2 (0.2-1.0)
[2024-01-06 23:42] LABS: BACTERIA,URINE FEW /hpf (FEW); MUCUS,URINE FEW /hpf (FEW); RBC,URINE 0-5 /hpf (0-5); SQUAMOUS EPITHELIAL CELLS,UR 0-5 /hpf (0-5); WBC,URINE 0-5 /hpf (0-5)
[2024-01-07] MEDS: Carvedilol 12.5 MG Tab PO ONE (01:15)
[2024-01-07] MEDS: atorvaSTATin 20 MG Tab PO ONE (01:18)
[2024-01-07] MEDS: Thiamine 200 MG/2 ML MDV IVPUSH ONE (01:31)
[2024-01-07] MEDS: Dextrose 5%-Lactated Ringers 1,000 ML IV SCH (01:32)
[2024-01-07 01:33] LABS: BASOPHILS ABSOLUTE AUTO 0.1 K/mm3 (0.0-0.2); BASOPHILS PERCENT AUTO 0.8 % (0.0-1.0); EOSINOPHILS ABSOLUTE AUTO 0.1 K/mm3 (0.0-0.4); EOSINOPHILS PERCENT AUTO 1.8 % (0.0-6.0); HEMATOCRIT 37.8 % (37.0-47.0); HEMOGLOBIN 13.1 gm/dl (12.0-16.0); IMMATURE GRAN ABSOLUTE AUTO 0.01 K/mm3 (0.00-0.05); IMMATURE GRAN PERCENT AUTO 0.2 % (0.0-0.4); LYMPHOCYTES ABSOLUTE AUTO 2.4 K/mm3 (1.0-4.8); LYMPHOCYTES PERCENT AUTO 38.9 % (24.0-44.0); MEAN CORPUSCULAR HEMOGLOBIN 33.5 pg (28.0-32.0); MEAN CORPUSCULAR HGB CONC 34.7 g/dl (32.0-36.0); MEAN CORPUSCULAR VOLUME 96.7 fl (83.0-99.0); MEAN PLATELET VOLUME 8.8 fl (9.4-12.3); MONOCYTES ABSOLUTE AUTO 0.5 K/mm3 (0.0-0.8); NEUTROPHILS ABSOLUTE AUTO 3.2 K/mm3 (1.8-7.7); NEUTROPHILS PERCENT AUTO 50.3 % (41.0-71.0); PLATELET COUNT,PLT 242 K/mm3 (150-400); RED BLOOD CELL COUNT 3.91 M/mm3 (4.10-5.30); WHITE BLOOD CELL COUNT,WBC 6.25 K/mm3 (3.9-11.3)
[2024-01-07 01:51] LABS: PROTHROMBIN TIME 9.9 SECONDS (9.7-12.0)
[2024-01-07 01:52] LABS: PTT,PARTIAL THROMBOPLSTIN TIME 27.9 SECONDS (21.7-31.4)
[2024-01-07 01:54] LABS: INR < 0.93
[2024-01-07 02:01] LABS: BARBITURATE SCREEN,URINE NEGATIVE (CUTOFF=200); BENZODIAZEPINES SCREEN,URINE NEGATIVE (CUTOFF=150); BUPRENORPHINE SCREEN,URINE NEGATIVE (CUTOFF=10); METHADONE SCREEN, URINE NEGATIVE (CUTOFF=200); METHAMPHETAMINES SCREEN, URINE NEGATIVE (CUTOFF=500); OXYCODONE SCREEN,URINE NEGATIVE (CUT0FF=100); THC SCREEN,URINE 20 NG/ML NEGATIVE (CUTOFF=50)
[2024-01-07] MEDS: LORazepam 2 MG/ML SDV IVPUSH ONE (02:06)
[2024-01-07 02:17] LABS: AMPHETAMINES SCREEN, URINE NEGATIVE (CUTOFF=500)
[2024-01-07 02:17] LABS: A/G RATIO 0.9 (1-2); ALANINE AMINOTRANSFERASE,ALT 29 U/L (14-59); ALBUMIN 3.5 g/dl (3.4-5.0); ALKALINE PHOSPHATASE 61 U/L (46-116); ANION GAP 18.7 (5-15); ASPARTATE AMNIOTRANSFERASE,AST 26 U/L (15-37); BILIRUBIN TOTAL 0.3 mg/dL (0.2-1.0); BLOOD UREA NITROGEN,BUN 12 mg/dL (7-18); CALCIUM 8.4 mg/dL (8.5-10.1); CARBON DIOXIDE,CO2 21 mEq/L (21-32); CHLORIDE,CL 105 mEq/L (98-107); EST CRCL DRUG DOSING (CG) 70.54 mL/min; ESTIMATED GFR 72 mL/min (>60); ETHANOL BLOOD MEDICAL 0.24 gm% (0.00); GLUCOSE RANDOM 114 mg/dL (70-99); MAGNESIUM 1.7 mg/dL (1.8-2.4); POTASSIUM,K 3.7 mEq/L (3.5-5.1); PROTEIN TOTAL,TP 7.3 g/dl (6.4-8.2); SODIUM,NA 141 mEq/L (136-145); TSH 2.367 uIU/mL (0.358-3.74); VITAMIN D,25-HYDROXY 40.9 ng/ml (30.0-100.0)
[2024-01-07 02:26] LABS: C-REACTIVE PROTEIN < 0.05 mg/dL (<0.30)
[2024-01-07 12:26] VITALS: BP 131/77; PULSE 86
== END 2024-01-07 12:12 | disposition home or self-care (01) ==
LOC: JD.ED 22:47
DX: F32.89 Other specified depressive episodes (principal); F10.920 Alcohol use, unspecified with intoxication, uncomplicated; I10 Essential (primary) hypertension; Z86.16 Personal history of COVID-19; Z79.899 Other long term (current) drug therapy; Z88.0 Allergy status to penicillin; Z88.8 Allergy status to other drugs, medicaments and biological substances
CPT/HCPCS: 36415; 80053; 80306; 80307; 81001; 82306; 82607; 83735; 83880; 84146; 84443; 85025; 85610; 85730; 86140; 93005; 96361; 96374; 96375; 99285; A9270; J2060; J3411; J7121; 93010; 99284

== ENCOUNTER 2025-05-07 14:39 | Emergency (ER) | payer BC, OTHER ==
[2025-05-07] MEDS: Lactated Ringers 1,000 ML IV ONE (15:43)
[2025-05-07] MEDS: Thiamine 200 MG/2 ML MDV IVPUSH ONE (15:43)
[2025-05-07] MEDS: Ondansetron 4 MG/2 ML SDV IVPUSH ONE (15:43)
[2025-05-07 15:50] LABS: BASOPHILS ABSOLUTE AUTO 0.1 K/mm3 (0.0-0.2); BASOPHILS PERCENT AUTO 0.7 % (0.0-1.0); EOSINOPHILS ABSOLUTE AUTO 0.5 K/mm3 (0.0-0.4); EOSINOPHILS PERCENT AUTO 4.4 % (0.0-6.0); IMMATURE GRAN ABSOLUTE AUTO 0.04 K/mm3 (0.00-0.05); IMMATURE GRAN PERCENT AUTO 0.4 % (0.0-0.4); LYMPHOCYTES ABSOLUTE AUTO 3.6 K/mm3 (1.0-4.8); LYMPHOCYTES PERCENT AUTO 34.1 % (24.0-44.0); MEAN PLATELET VOLUME 9.2 fl (9.4-12.3); MONOCYTES ABSOLUTE AUTO 0.8 K/mm3 (0.0-0.8); MONOCYTES PERCENT AUTO 7.1 % (0.0-8.0); NEUTROPHILS ABSOLUTE AUTO 5.7 K/mm3 (1.8-7.7); NEUTROPHILS PERCENT AUTO 53.3 % (41.0-71.0); NRBC ABSOLUTE 0.00 (0.00-0.02); NRBC PERCENT 0.0 % (0.0-0.2); PLATELET COUNT,PLT 299 K/mm3 (150-400); RED BLOOD CELL COUNT 4.43 M/mm3 (4.10-5.30); WHITE BLOOD CELL COUNT,WBC 10.61 K/mm3 (3.9-11.3)
[2025-05-07 16:10] LABS: BUPRENORPHINE SCREEN,URINE NEGATIVE (CUTOFF=10); METHADONE SCREEN, URINE NEGATIVE (CUTOFF=200); METHAMPHETAMINES SCREEN, URINE NEGATIVE (CUTOFF=500); OXYCODONE SCREEN,URINE NEGATIVE (CUT0FF=100); THC SCREEN,URINE 20 NG/ML NEGATIVE (CUTOFF=50)
[2025-05-07 16:14] LABS: AMPHETAMINES SCREEN, URINE NEGATIVE (CUTOFF=500)
[2025-05-07 16:39] LABS: A/G RATIO 1.1 (1-2); ALANINE AMINOTRANSFERASE,ALT 42.0 U/L (14-59); ASPARTATE AMNIOTRANSFERASE,AST 24.0 U/L (15-37); BILIRUBIN TOTAL 0.4 mg/dL (0.2-1.0); BLOOD UREA NITROGEN,BUN 15.0 mg/dL (7-18); CARBON DIOXIDE,CO2 22.0 mEq/L (21-32); CHLORIDE,CL 103.0 mEq/L (98-107); CREATININE 1.1 mg/dL (0.55-1.02); EST CRCL DRUG DOSING (CG) 63.47 mL/min; ESTIMATED GFR 64.0 mL/min (>60); ETHANOL BLOOD MEDICAL 0.3 gm% (0.00); GLUCOSE RANDOM 92.0 mg/dL (70-99); HCG QUANTITATIVE 2.0 mIU/mL; POTASSIUM,K 3.8 mEq/L (3.5-5.1); PROTEIN TOTAL,TP 7.6 g/dl (6.4-8.2); SODIUM,NA 136.0 mEq/L (136-145)
[2025-05-07 17:08] LABS: TSH 5.873 uIU/mL (0.358-3.74)
[2025-05-07] MEDS: Folic Acid 50 MG/10 ML MDV IV STA (17:12)
[2025-05-07 19:42] VITALS: BP 134/85; PULSE 89
== END 2025-05-07 19:52 | disposition home or self-care (01) ==
LOC: JD.ED 14:39
DX: F10.920 Alcohol use, unspecified with intoxication, uncomplicated (principal); I10 Essential (primary) hypertension; Z86.16 Personal history of COVID-19; Z88.1 Allergy status to other antibiotic agents; Z88.8 Allergy status to other drugs, medicaments and biological substances; Z79.51 Long term (current) use of inhaled steroids; Z79.890 Hormone replacement therapy; Z79.899 Other long term (current) drug therapy; Y90.0 Blood alcohol level of less than 20 mg/100 ml
CPT/HCPCS: 36415; 80053; 80143; 80179; 80306; 80307; 83735; 84443; 84702; 85025; 93005; 96361; 96374; 96375; 99284; J2405; J3411; J7030; J7120; J3490

== ENCOUNTER 2025-09-16 15:20 | Emergency (ER) | payer OTHER ==
[2025-09-16] MEDS ORDERED: Sodium Chloride 0.9% 10 ML Syringe FLUSH PRN (15:50)
[2025-09-16 16:01] LABS: BASOPHILS ABSOLUTE AUTO 0.1 K/mm3 (0.0-0.2); BASOPHILS PERCENT AUTO 1.1 % (0.0-1.0); EOSINOPHILS ABSOLUTE AUTO 0.3 K/mm3 (0.0-0.4); EOSINOPHILS PERCENT AUTO 3.9 % (0.0-6.0); IMMATURE GRAN ABSOLUTE AUTO 0.03 K/mm3 (0.00-0.05); IMMATURE GRAN PERCENT AUTO 0.4 % (0.0-0.4); LYMPHOCYTES ABSOLUTE AUTO 3.7 K/mm3 (1.0-4.8); LYMPHOCYTES PERCENT AUTO 45.0 % (24.0-44.0); MEAN PLATELET VOLUME 9.2 fl (9.4-12.3); MONOCYTES ABSOLUTE AUTO 0.8 K/mm3 (0.0-0.8); MONOCYTES PERCENT AUTO 9.2 % (0.0-8.0); NEUTROPHILS ABSOLUTE AUTO 3.3 K/mm3 (1.8-7.7); NEUTROPHILS PERCENT AUTO 40.4 % (41.0-71.0); NRBC ABSOLUTE 0.00 (0.00-0.02); NRBC PERCENT 0.0 % (0.0-0.2); PLATELET COUNT,PLT 264 K/mm3 (150-400); RED BLOOD CELL COUNT 4.06 M/mm3 (4.10-5.30); WHITE BLOOD CELL COUNT,WBC 8.18 K/mm3 (3.9-11.3)
[2025-09-16 16:10] LABS: APPEARANCE,URINE CLEAR (Clear); GLUCOSE,URINE NEGATIVE (Negative); OCCULT BLOOD,URINE NEGATIVE (Negative)
[2025-09-16 16:12] LABS: A/G RATIO 1.0 (1-2); ALANINE AMINOTRANSFERASE,ALT 35.0 U/L (14-59); ASPARTATE AMNIOTRANSFERASE,AST 21.0 U/L (15-37); BILIRUBIN TOTAL 0.2 mg/dL (0.2-1.0); BLOOD UREA NITROGEN,BUN 9.0 mg/dL (7-18); CARBON DIOXIDE,CO2 21.0 mEq/L (21-32); CHLORIDE,CL 108.0 mEq/L (98-107); CREATININE 0.8 mg/dL (0.55-1.02); EST CRCL DRUG DOSING (CG) 87.27 mL/min; ESTIMATED GFR 93.0 mL/min (>60); ETHANOL BLOOD MEDICAL 0.33 gm% (0.00); GLUCOSE RANDOM 120.0 mg/dL (70-99); PHOSPHORUS 3.6 mg/dL (2.6-4.7); POTASSIUM,K 3.5 mEq/L (3.5-5.1); PROTEIN TOTAL,TP 7.0 g/dl (6.4-8.2); SODIUM,NA 143.0 mEq/L (136-145)
[2025-09-16 16:19] LABS: BUPRENORPHINE SCREEN,URINE NEGATIVE (CUTOFF=10); METHADONE SCREEN, URINE NEGATIVE (CUTOFF=200); METHAMPHETAMINES SCREEN, URINE NEGATIVE (CUTOFF=500); OXYCODONE SCREEN,URINE NEGATIVE (CUT0FF=100); THC SCREEN,URINE 20 NG/ML NEGATIVE (CUTOFF=50)
[2025-09-16 16:20] LABS: AMPHETAMINES SCREEN, URINE NEGATIVE (CUTOFF=500)
[2025-09-16 16:39] LABS: LACTIC ACID 1.4 mmol/L (0.4-2.0)
[2025-09-16] MEDS: Thiamine 200 MG/2 ML MDV IM ONE (18:30)
[2025-09-16] MEDS: Multivitamins with Minerals/Folic Acid/Lutein/Zeaxanth Tab PO STA (19:35)
[2025-09-16 21:58] VITALS: BP 114/69; PULSE 102
== END 2025-09-16 20:20 | disposition home or self-care (01) ==
LOC: JD.ED 15:20
DX: F10.129 Alcohol abuse with intoxication, unspecified (principal); I10 Essential (primary) hypertension; E86.0 Dehydration; Z88.0 Allergy status to penicillin; Z88.8 Allergy status to other drugs, medicaments and biological substances; Z79.890 Hormone replacement therapy; Z79.899 Other long term (current) drug therapy; Z86.16 Personal history of COVID-19; Z90.710 Acquired absence of both cervix and uterus
CPT/HCPCS: 36415; 80053; 80306; 80307; 81003; 83605; 83735; 84100; 85025; 96360; 96361; 96372; 99284; A9270; J3411; J7030